=== PATIENT | female | born 1985 | race Caucasian/White ===

== ENCOUNTER 2016-12-02 09:40 | Emergency (ER) | payer OTHER ==
[2016-12-02 09:45] VITALS: TEMP 98; O2SAT 100
[2016-12-02 09:46] VITALS: BMI 27.0
[2016-12-02 11:12] LABS: BASO % 0.4 % (0.0-2.0); EOS # 0.1 K/uL (0.0-0.7); LYMPH # 2.1 K/uL (1.0-4.3); LYMPH % 29.8 % (20.0-40.0); MEAN CELL VOLUME 87.1 fl (81.0-99.0); MEAN CORPUSCULAR HEMOGLOBIN 29.6 pg (27.0-31.0); MEAN PLATELET VOLUME 7.4 fl (7.2-11.7); MONO # 0.4 K/uL (0.0-0.8); MONO % 5.2 % (0.0-10.0); NEUT # 4.5 K/uL (1.8-7.0); NEUT % 63.6 % (50.0-75.0); NRBC % 0.1 % (0.0-0.0); RED CELL DISTRIBUTION WIDTH 12.3 % (11.5-14.5)
[2016-12-02 11:30] LABS: BLOOD UREA NITROGEN 13 mg/dl (7-17); CALCIUM 8.7 mg/dL (8.4-10.2); CARBON DIOXIDE 23 mmol/L (22-30); CHLORIDE 108 mmol/L (98-107); GFR AFRICAN-AMERICAN > 60; GLUCOSE,RANDOM 93 mg/dL (65-105); SODIUM 140 mmol/l (132-148)
--- NOTE | 2016-12-02 11:51 | CARD ---
APPROVED REPORT EKG Measurement Heart [id number] <Conclusion> Sinus rhythm with marked sinus arrhythmia Otherwise normal ECG
--- NOTE | 2016-12-02 12:37 | MRI ---
PROCEDURE: MRI BRAIN WITHOUT CONTRAST HISTORY: Seizure, head injury COMPARISON: None. TECHNIQUE: Multiplanar, multisequence MR images of the brain were obtained without intravenous contrast enhancement. High-resolution images were obtained through the temporal lobes. FINDINGS: HEMORRHAGE: None DWI: No evidence of an acute or early subacute infarction. BRAIN PARENCHYMA: Bobby-white matter differentiation is preserved. There is no mass, mass effect or abnormal extra-axial fluid collection. The midline sagittal structures are normal. The hippocampi by are normal with symmetric architecture and normal signal intensity. No evidence of mesial temporal sclerosis. VENTRICLES: The ventricles are normal in size, shape and configuration. CRANIUM: There is normal bone marrow signal pattern. ORBITS: Grossly unremarkable. PARANASAL SINUSES/MASTOIDS: Predominantly clear. VASCULAR SYSTEM: There are normal signal voids in the larger intracranial arteries. OTHER FINDINGS: None. IMPRESSION: No acute intracranial abnormality. Specifically, no evidence mesial temporal sclerosis.
--- NOTE | 2016-12-02 12:51 | ED PDOC ---
HPI: Seizure Time Seen by Provider: 12/02/16 10:07 Chief Complaint (Nursing): GI Problem Chief Complaint (Provider): Nausea and seizure History Per: Patient History/Exam Limitations: no limitations Number Of Seizures: One (yesterday) Length Of Seizures (Duration): Seconds Associated Symptoms: denies: Bit Tongue Additional Complaint(s): Gary Treviño is a 31 year old female, with a past medical history of seizures , who present to the emergency department for a witnessed seizure associated with nausea onset 1 day ago. Patient reports seizure was witnessed by her fiance. Per witness, she fell and hit her head. The witness states episode was brief, she was shaking on floor unresponsive. She wasn't incontinent and she didn't bit her tongue. Patient states she has had nausea since then. Patient reports she has had similar seizures in the past but was never diagnosed until Thursday when she went to neurologist. She has an MRI and EEG scheduled this week but is not taking any medication due to the recent diagnosis. Patient was seen by a neurologist previously in the past but with negative work up for seizure. She denies any vomit, headache, or dizziness. No further medical complaints. PMD: None provided. Past Medical History Reviewed: Historical Data, Nursing Documentation, Vital Signs Vital Signs: Last Vital Signs Temp 98 F 12/02/16 09:45 Pulse 68 12/02/16 13:05 Resp 16 12/02/16 13:01 BP 104/59 L 12/02/16 13:01 Pulse Ox 100 12/02/16 13:05 - Medical History PMH: Hypercholesterolemia, Seizures Denies: Chronic Kidney Disease - Family History Family History: States: Unknown Family Hx - Social History Ex-Smoker (has not smoked in the last 12 months): Yes Alcohol: Social Drugs: Denies - Allergies Allergies/Adverse Reactions: Allergies Allergy/AdvReac Type Severity Reaction Status Date / Time No Known Allergies Allergy Verified 12/02/16 10:12 Review of Systems ROS Statement: Except As Marked, All Systems Reviewed And Found Negative Gastrointestinal: Positive for: Nausea Physical Exam - Reviewed Nursing Documentation Reviewed: Yes Vital Signs Reviewed: Yes - Physical Exam Appears: Positive for: Well, Non-toxic, No Acute Distress Head Exam: Positive for: ATRAUMATIC, NORMAL INSPECTION, NORMOCEPHALIC Skin: Positive for: Normal Color, Warm, Dry Eye Exam: Positive for: EOMI, Normal appearance, PERRL Neck: Positive for: Normal, Painless ROM, Supple Cardiovascular/Chest: Positive for: Regular Rate, Rhythm. Negative for: Murmur Respiratory: Positive for: Normal Breath Sounds. Negative for: Respiratory Distress Gastrointestinal/Abdominal: Positive for: Normal Exam, Bowel Sounds, Soft. Negative for: Tenderness, Guarding, Rebound Back: Positive for: Normal Inspection. Negative for: Vertebral Tenderness Extremity: Positive for: Normal ROM Neurologic/Psych: Positive for: Alert, Oriented (x3). Negative for: Motor/ Sensory Deficits - Laboratory Results Result Diagrams: 12/02/16 11:05 12/02/16 11:05 - ECG ECG Rhythm: Positive for: Normal QRS, Sinus Rhythm (normal). Negative for: ST/ T Changes Rate: 68 O2 Sat by Pulse Oximetry: 100 Medical Decision Making Medical Decision Making: Initial Impression: seizure, nausea, and head injury. Differential includes: seizures, intracranial bleeding after head injury Initial Plan: --Urine dipstick --Urine --EKG 1236 Brain MRI Impression: No acute intracranial abnormality. Specifically, no evidence mesial Temporal sclerosis Scribe Attestation: Documented by Ever Vicente, acting as a scribe for Kavita Lucas MD Provider Scribe Attestation: All medical record entries made by the Scribe were at my direction and personally dictated by me. I have reviewed the chart and agree that the record accurately reflects my personal performance of the history, physical exam, medical decision making, and the department course for this patient. I have also personally directed, reviewed, and agree with the discharge instructions and disposition. Disposition - Clinical Impression Clinical Impression: Nausea, Seizure - Disposition Referrals: Boni Parikh MD [Medical Doctor] - Disposition Time: 13:00 Condition: GOOD Additional Instructions: Follow up with your Neurologist within 2-3 days. Instructions: Recurrent Seizures in Adults (ED)
[2016-12-02 13:02] VITALS: BP 104/59; RESP 16
[2016-12-02 13:05] VITALS: PULSE 68
== END 2016-12-02 13:29 | disposition home or self-care (01) ==
LOC: H.ER 09:40
DX: G40.909 Epilepsy, unspecified, not intractable, without status epilepticus (principal); S09.90XA Unspecified injury of head, initial encounter; W19.XXXA Unspecified fall, initial encounter; Y92.89 Other specified places as the place of occurrence of the external cause; R11.0 Nausea; E78.00 Pure hypercholesterolemia, unspecified